=== PATIENT | male | born 1960 | race Caucasian/White ===

== ENCOUNTER → 2024-01-11 08:12 | Outpatient (CLI) | payer OTHER, SELFPAY ==
--- NOTE | 2024-01-11 08:17 | DI.RAD.S_ITS ---
PROCEDURE: XR LUMBAR SPINE MIN 4V INDICATIONS: BACK PAIN TECHNIQUE: 5 views of the lumbar spine acquired, including flexion and extension views. COMPARISON: None. FINDINGS: Bones: 5 nonrib-bearing vertebrae are present. There is normal bony alignment. No vertebral body compression fractures. No suspicious bony lesions. Bilateral pars defects and grade 2 anterior spondylolisthesis at L4-5. Para degenerative disc space narrowing and hypertrophic facet joints noted particularly in the lower lumbar spine. Both oblique images noted. Soft tissues: Overlying bowel gas pattern is normal. No suspicious soft tissue calcifications. IMPRESSION: Grade 2 isthmic spondylolisthesis at L5-S1 Degenerative disc disease and arthropathy Approved by: Brandon Masters M.D. on 01/11/2024 at 14:41
== END ==
PROVIDERS: Referring Provider Physical Medicine & Rehabilitation; Visit Provider Physical Medicine & Rehabilitation
DX: M43.17 Spondylolisthesis, lumbosacral region (principal); M51.36 Other intervertebral disc degeneration, lumbar region; M47.816 Spondylosis without myelopathy or radiculopathy, lumbar region; M54.9 Dorsalgia, unspecified
CPT/HCPCS: 72110

== ENCOUNTER → 2024-01-28 07:28 | Outpatient (CLI) | payer OTHER, SELFPAY ==
--- NOTE | 2024-01-28 07:30 | DI.MRI.S_ITS ---
PROCEDURE: MR LUMBAR SPINE WO CON INDICATIONS: Left L5 radiculopathy TECHNIQUE: Noncontrast sagittal T1 spin echo and T2 fast echo, sagittal STIR, and T2 fast spin echo through the lumbar spine. In cases with scoliosis, additional coronal T2 fast spin echo may be performed. COMPARISON: [facility], [place], XR LUMBAR SPINE MIN 4V, 01/11/2024, 8:18. FINDINGS: Image quality: Excellent. Alignment and Curvature: There is 5 mm retrolisthesis of L4 on L5. Grade 1 anterolisthesis of L5 with pars defect. Bone Marrow: Marrow is of normal overall signal. Superior endplate Schmorl's node is prominent at L2. Focus of increased T1 and T2 is present at L1 likely hemangioma. No acute vertebral body compression fractures. Spinal Cord: Conus medullaris terminates at the L1 level. Visualized cord demonstrates normal signal and size. Paraspinous Soft Tissues: No paravertebral masses. Discs: Moderate disc desiccation L5-S1, mild to moderate throughout the remainder of the lumbar spine. T12-L1: Minimal disc bulge without spinal stenosis or foraminal narrowing. L1-L2: Mild disc bulge without spinal stenosis or foraminal narrowing. L2-L3: Mild disc bulge with mild spinal stenosis. No foraminal narrowing. L3-L4: Mild disc bulge with ifox-vc-qezhsofn spinal stenosis. Smgc-ft-hocdxqdq bilateral foraminal narrowing, left greater than right. L4-L5: Mild disc bulge with superimposed left posterior paracentral extrusion measuring approximately 8 mm. There is severe compromise of the left lateral recess. Moderate bilateral foraminal narrowing with facet and ligamentum flavum hypertrophy. L5-S1: Mild disc bulge without spinal stenosis. Moderate right and nrxv-ox-eyuhmsvl left foraminal narrowing with facet and ligamentum flavum hypertrophy. IMPRESSION: Multilevel disc bulges, spinal stenosis and foraminal narrowing. Small extrusion at L4-5 causing severe compromise of the left lateral recess. Dwqw-fr-xyeboynq foraminal narrowing L5-S1 secondary to anterolisthesis as well as pars defect. Dictated by: Lolis Maxwell M.D. on 01/30/2024 at 17:05 Approved by: Lolis Maxwell M.D. on 01/30/2024 at 17:10
== END ==
LOC: MRI 07:29
PROVIDERS: Referring Provider Physical Medicine & Rehabilitation; Visit Provider Physical Medicine & Rehabilitation
DX: M54.16 Radiculopathy, lumbar region (principal); M51.26 Other intervertebral disc displacement, lumbar region; M48.061 Spinal stenosis, lumbar region without neurogenic claudication; M43.17 Spondylolisthesis, lumbosacral region
CPT/HCPCS: 72148

== ENCOUNTER 2024-03-06 07:28 | Outpatient (CLI) | payer OTHER, SELFPAY ==
[2024-03-06] VITALS (8 sets, daily range): BP systolic 112–140; BP diastolic 76–89; PULSE 43–51; RESP 14–19; TEMP 36.1; O2SAT 97–100
--- NOTE | 2024-03-06 08:00 | DI.RAD.S_ITS ---
PROCEDURE: PAIN L/S TRANSFORAMINAL INJECT INDICATIONS: Left L4/5 and L5-S1 transforaminal RUPAL COMPARISON: None. FINDINGS: Fluoroscopic spot filming was performed to verify placement of spinal needles at the L4-5 and L5-S1 level(s), as labeled on the films. Appropriate location(s) of the needle tip(s) was confirmed by injection of iodinated contrast. IMPRESSION: Fluoro guidance was provided intraoperatively for left L4-5 and L5-S1 transforaminal RUPAL performed by ordering physician. Dictated by: Yasmani Rodney M.D. on 03/06/2024 at 11:28 Approved by: Yasmani Rodney M.D. on 03/06/2024 at 11:29
[2024-03-06] MEDS: SODIUM CHLORIDE 0.9% 250 ML 500 ML IV (08:16)
[2024-03-06] MEDS: MIDAZOLAM 2 MG/2 ML VIAL IV (08:16)
[2024-03-06] MEDS: iopamidoL 15 ML VIAL 3 ML INJ (08:28)
[2024-03-06] MEDS: BUPIVACAINE 0.25% (PF) VIAL 2 ML INJ (08:29)
[2024-03-06] MEDS: DEXAMETHASONE 10 MG/ML VIAL 20 MG INJ (08:29)
[2024-03-06] MEDS: BETAMETHASONE 30 MG/5 ML MDV 12 MG INJ (08:29)
--- NOTE | 2024-03-06 08:44 | P.PCN_ITS ---
Date/Time/Diagnoses Date of procedure: 03/06/24 Time of procedure: 08:44 Pre-procedure diagnosis: 1. FORAMINAL STENOSIS WITH LE SYMPTOMS Post-procedure diagnosis: same Procedure Notes Procedure: 1. FLUOROSCOPICALLY GUIDED CONTRAST CONTROLLED TRANSFORAMINAL EPIDURAL STEROID INJECTION - LEFT L4/5 Indications: Pino is referred by Dr. Hernandez for treatment of Foraminal Stenosis with Left LE Symptoms Physician: Lalo Brown Total Fluoroscopy time (seconds): 18 Total sedation minutes: 20 Complications: none Procedure in detail & Post-procedure care: FINDINGS Foraminal Nerve Root Compression secondary to disc disease and facet hypertrophy DESCRIPTION OF PROCEDURE Following review of allergy and review of potential side effects and complications, including, but not necessarily limited to, infection, allergic reaction, local tissue breakdown, stroke, temporary or permanent nerve injury, paralysis, and possible , the patient indicated that the patient understood and agreed to proceed. An informed consent document was signed by the patient, witnessed by a nurse, and placed in the patient's chart. Additionally, other treatment options including medications, modalities, and physical therapy were reviewed with the patient. After review of previous anaesthesic history and IV conscious sedation the patient was deemed safe to proceed with today?s procedure with IV conscious sedation as ASA class II designation. Safety time-out was performed to confirm patient ID, procedure to be performed and site of procedure. IV sedation was accomplished with a combination of 2mg of Versed administered by the RN after DO order, titrated to patient comfort during the course of the procedure while the patient remained responsive to all verbal commands In the prone position following sterile prep and drape of the lumbar region, the left L4/5 posterior neuroforamen was identified fluoroscopically. The skin was anesthetized via a 25-gauge 1.5-inch needle with 1% lidocaine solution. At this point, a 25-gauge 3.5-inch spinal needle was atraumatically introduced and advanced under fluoroscopic guidance through the posterior left L4/5 neuroforamen to approximately the anterior aspect of the canal. Depth was confirmed on lateral view. Following negative aspiration, injection of approximately 1.5 cc of Isovue 200 under live fluoroscopy in the AP view confirm ed excellent flow along the nerve root, into the epidural space without vascular or intrathecal uptake observed Radiological data, including multiple fluoroscopic views of the lumbosacral spine, reveal a spinal needle at the left L4/5 posterior neuroforamen. Subsequent views show flow of contrast material flowing superiorly and inferiorly along the nerve root confirming epidural flow. Subsequently, a test dose of 1.5 cc of 1% lidocaine solution was administered and patient was observed for two minutes for signs or symptoms of complications, including abdominal pain, shortness of breath, bilateral upper or lower extremity weakness, nausea and vomiting, prior to steroid injection. At this point, a total of 2cc or 10mg of dexamethasone and 6mg of betamethasone was injected without incident. The procedure tolerated the procedure well without signs or symptoms of complications prior to transfer to the recovery area continued monitoring without incident. The patient was then transferred to the recovery area where they were observed for an appropriate time after the injection. The patient reported a VAS score of 7 prior to the procedure and a post- procedure VAS of 0. POST OP INSTRUCTIONS The patient was provided a Pain Log to continue to record their response to the target-specific procedure prior to follow-up visit with their referring phys ician. Additionally, specific post-injection care instructions and a contact number to our office were provided if concerns arise regarding possible complications associated with the procedure are suspected.
--- NOTE | 2024-03-06 08:46 | P.PCN_ITS ---
Date/Time/Diagnoses Date of procedure: 03/06/24 Time of procedure: 08:46 Pre-procedure diagnosis: 1. FORAMINAL STENOSIS WITH LE SYMPTOMS Post-procedure diagnosis: same Procedure Notes Procedure: 1. FLUOROSCOPICALLY GUIDED CONTRAST CONTROLLED TRANSFORAMINAL EPIDURAL STEROID INJECTION - Left L5/S1 Indications: Pino is referred by Dr. Hernandez for treatment of Foraminal Stenosis with Left LE Symptoms Physician: Lalo Brown Total Fluoroscopy time (seconds): 18 Total sedation minutes: 20 Complications: none Procedure in detail & Post-procedure care: FINDINGS Foraminal Nerve Root Compression secondary to disc disease and facet hypertrophy DESCRIPTION OF PROCEDURE Following review of allergy and review of potential side effects and complications, including, but not necessarily limited to, infection, allergic reaction, local tissue breakdown, stroke, temporary or permanent nerve injury, paralysis, and possible , the patient indicated that the patient understood and agreed to proceed. An informed consent document was signed by the patient, witnessed by a nurse, and placed in the patient's chart. Additionally, other treatment options including medications, modalities, and physical therapy were reviewed with the patient. After review of previous anaesthesic history and IV conscious sedation the patient was deemed safe to proceed with today?s procedure with IV conscious sedation as ASA class II designation. Safety time-out was performed to confirm patient ID, procedure to be performed and site of procedure. IV sedation was accomplished with a combination of 2mg of Versed was administered by the RN after DO order, titrated to patient comfort during the course of the procedure while the patient remained responsive to all verbal commands In the prone position following sterile prep and drape of the lumbar region, the Left L5/S1 posterior neuroforamen was identified fluoroscopically. The skin was anesthetized via a 25-gauge 1.5-inch needle with 1% lidocaine solution. At this point, a 25-gauge 3.5-inch spinal needle was atraumatically introduced and advanced under fluoroscopic guidance through the posterior Left L5/S1 neuroforamen to approximately the anterior aspect of the canal. Depth was confirmed on lateral view. Following negative aspiration, injection of approximately 1.5 cc of Isovue 200 under live fluoroscopy in the AP view confirmed excellent flow along the nerve root, into the epidural space without vascular or intrathecal uptake observed Radiological data, including multiple fluoroscopic views of the lumbosacral s pine, reveal a spinal needle at the Left L5/S1 posterior neuroforamen. Subsequent views show flow of contrast material flowing superiorly and inferiorly along the nerve root confirming epidural flow. Subsequently, a test dose of 1.5 cc of 1% lidocaine solution was administered and patient was observed for two minutes for signs or symptoms of complications, including abdominal pain, shortness of breath, bilateral upper or lower extremity weakness, nausea and vomiting, prior to steroid injection. At this point, a total of 2cc or 10mg of dexamethasone and 6mg of betamethasone was injected without incident. The procedure tolerated the procedure well without signs or symptoms of complications prior to transfer to the recovery area continued monitoring without incident. The patient was then transferred to the recovery area where they were observed for an appropriate time after the injection. The patient reported a VAS score of 7 prior to the procedure and a post-procedure VAS of 0. POST OP INSTRUCTIONS The patient was provided a Pain Log to continue to record their response to the target-specific procedure prior to follow-up visit with their referring physician. Additionally, specific post-injection care instructions and a contact number to our office were provided if concerns arise regarding possible complications associated with the procedure are suspected.
== END 2024-03-06 08:53 | disposition home or self-care (01) ==
LOC: RAD 07:29
PROVIDERS: Referring Provider Physical Medicine & Rehabilitation; Visit Provider Physical Medicine & Rehabilitation
DX: M48.061 Spinal stenosis, lumbar region without neurogenic claudication (principal); M48.07 Spinal stenosis, lumbosacral region; M51.16 Intervertebral disc disorders with radiculopathy, lumbar region; M51.17 Intervertebral disc disorders with radiculopathy, lumbosacral region; M47.26 Other spondylosis with radiculopathy, lumbar region; M47.27 Other spondylosis with radiculopathy, lumbosacral region
CPT/HCPCS: 64483; 64484; 99152; J0702; J1100; J2250; J3490